=== PATIENT | female | born 1945 | race Caucasian/White ===

== ENCOUNTER 2017-01-11 05:43 | Day surgery (SDC) | payer OTHER ==
[2017-01-11] MEDS ORDERED: LIDOCAINE 1% 5 ML SDV ID PRN (06:35)
[2017-01-11] MEDS ORDERED: ONDANSETRON 4 MG/2 ML VIAL ONE (06:53)
[2017-01-11] MEDS ORDERED: fentaNYL 100 MCG/2 ML INJ ONE (06:53)
[2017-01-11] MEDS ORDERED: LIDOCAINE 2% 100 MG/5 ML SYR ONE (06:53)
[2017-01-11] MEDS ORDERED: ROCURONIUM 100 MG/10 ML VIAL ONE (06:53)
[2017-01-11] MEDS ORDERED: DEXAMETHASONE 4 MG/ML VIAL ONE (06:53)
[2017-01-11] MEDS ORDERED: ROPIVACAINE HCL 150 MG/30 ML INJ ONE (06:53)
[2017-01-11] MEDS ORDERED: PROPOFOL 200 MG/20 ML VIAL ONE (06:53)
[2017-01-11] MEDS ORDERED: EPINEPHrine 30 MG/30 ML MDV ONE (06:58)
[2017-01-11] MEDS ORDERED: SKIN ADHESIVE (DERMABOND) 1 EACH TP ONE (06:58)
[2017-01-11] MEDS ORDERED: LIDO/BUPIVA/morphINE 15ML SYR IU ONE (07:00)
[2017-01-11] MEDS ORDERED: LIDO/BUPIVA 10ML SYR IU ONE (07:00)
[2017-01-11] MEDS ORDERED: ceFAZolin 2 GM/DEXTROSE 100 ML IV ONE (07:00)
[2017-01-11] MEDS ORDERED: MIDAZOLAM 2 MG/2 ML VIAL ONE (07:05)
[2017-01-11] MEDS ORDERED: LIDOCAINE/BUPIVICAINE 10 ML SYR ONE (07:24)
[2017-01-11] MEDS ORDERED: LIDOCAINE/BUP/DURAMORPH 15 ML SYR IF ONE (07:24)
[2017-01-11] MEDS ORDERED: PHENYLEPHRINE HCL 100 MCG/ML SYR ONE (09:23)
[2017-01-11] MEDS ORDERED: epHEDrine SULFATE 10 MG/ML SYR ONE (09:23)
--- NOTE | 2017-01-11 10:29 | GOP ---
[f rep st] OPERATIVE REPORT DATE OF OPERATION: 01/11/2017 SURGEON: Kenn Fierro MD HOME CARE PROVIDER: Kezia Rios It should be noted no qualified resident was available. First maris agapitojuany was necessary to assist with the repair of the rotator cuff. ANESTHESIA: General with an interscalene block. PREOPERATIVE DIAGNOSIS: 1. Right shoulder rotator cuff tear. 2. Biceps tendinitis. 3. Subacromial impingement. POSTOPERATIVE DIAGNOSIS: 1. Right shoulder large rotator cuff tear. 2. Previously torn biceps tendon with a biceps stump in the joint. 3. Subacromial impingement. PROCEDURE PERFORMED: 1. Arthroscopic repair of the large rotator cuff tear. CPT code 54436. 2. Arthroscopic subacromial decompression. CPT code 44177. 3. Arthroscopic debridement of glenohumeral joint, debridement of the biceps stump. CPT code 68567 . FINDINGS: 1. Intact articular cartilage of humeral head and glenoid. 2. Absent biceps tendon with a stump of the biceps tendon and frayed superior labrum. 3. Intact anterior, inferior, posterior labrum. 4. Intact articular cartilage, humeral head and glenoid. 5. Large tear of the rotator cuff retracted to mid humeral head. 6. Mild subacromial bursitis. 1. Large downsloping of anterior acromion. INDICATIONS: Patient is a 71-year-old with persistent right shoulder pain. This has not improved d espite nonoperative management. Patient had options discussed, desired to go ahead with arthroscopy , arthroscopic repair of the rotator cuff, likely biceps tenodesis, and subacromial decompression. Patient understood the potential risks and benefits, including, but not limited to, bleeding, infect ion, persistent pain, stiffness, anesthetic risks. DESCRIPTION OF PROCEDURE: The patient was taken to the operating room. After undergoing successful general anesthesia, the patient was placed in the beach chair position. Right upper extremity was prepped and draped in usual sterile manner. Anatomic landmarks were identified. The anterior, post erior portal sites were injected with 0.25% Marcaine and 1% lidocaine. The subacromial space was in jected with the same. Posterior portal was made. The arthroscope was placed in the joint with the arthroscope in the joint, and the anterior portal was made as well. The findings are described abov e. The biceps was absent, indicating a rupture of this. The stump of the biceps was then subsequen tly debrided. The labrum was debrided. Next, after the debridement of the glenohumeral joint, the lateral portal was made and the greater t uberosity was decorticated. Next, with the arthroscope placed in the subacromial space, bursectomy was performed and any small b leeders were coagulated using electrocautery. The subacromial decompression was done beginning ante rolateral, and extended from anterolateral to anteromedial with the acromionizer bur. The acromion was made flat. Next, the anchors were placed. The portals were placed. It should be noted that some small amount of coplaning was done on the distal clavicle as well. The resection was not done. Next, anchors were placed into the bone after small holes were made to help facilitate healing. Thr ee of the 2.9 mm juggernaut suture anchors were placed. These had two #2 MaxBraid sutures. These w ere placed into the bone. The sutures from this were then brought through the tissue. There were t wo #2 MaxBraids in each of the 3 anchors. These were brought through the tissue utilizing either [employer] suture passing device or the bird beak. These were passed through. The rotator cuff was then tied down using arthroscopic knot tying technique. Following this, the repair of the rotator cuff was completed. The area was irrigated. There was fair to good tissue with good repair. Radha l sites were closed using 3-0 nylon suture. The subacromial space was injected with 0.25% Marcaine, 1% lidocaine and 5 mg of Duramorph. The patient had a sterile dressing. Patient was awakened, frankie en to recovery room in stable condition. Sponge, instrument, and needle counts were correct. PATIENT POSITION: Beach chair. PLAN: For the patient to undergo physical therapy with emphasis on passive range of motion only for the next 7 weeks. Will be passive motion in sling for 7 weeks. Claudia Bustos rotator cuff mervat fischer /[id number]/MODL
[2017-01-11] MEDS ORDERED: D5W 1/2 NS 1,000 ML IV SCH (11:00)
[2017-01-11] MEDS ORDERED: ONDANSETRON 4 MG/2 ML VIAL IVP PRN (11:00)
[2017-01-11] MEDS ORDERED: HYDROCODONE/APAP 5/325 TAB PO PRN (11:00)
[2017-01-11] MEDS ORDERED: OXYCODONE/APAP 5/325 TAB PO PRN (11:00)
== END 2017-01-11 11:20 | disposition home or self-care (01) ==
LOC: FSGY 05:43
PROVIDERS: ATTEND Orthopaedic Surgery Sports Medicine
PROC: 0PQ Upper Bones, Repair (ICD-10-PCS; principal; 2017-01-11 07:21)
PROC: 0MB14ZZ Excision of Right Shoulder Bursa and Ligament, Percutaneous Endoscopic Approach (ICD-10-PCS; principal; 2017-01-11 07:21)
PROC: 0LQ14ZZ Repair Right Shoulder Tendon, Percutaneous Endoscopic Approach (ICD-10-PCS; principal; 2017-01-11 07:21)
PROC: 0PQ Upper Bones, Repair (ICD-10-PCS; principal; 2017-01-11 07:21)
DX: M75.111 Incomplete rotator cuff tear or rupture of right shoulder, not specified as traumatic (principal); M75.21 Bicipital tendinitis, right shoulder; M75.41 Impingement syndrome of right shoulder; I10 Essential (primary) hypertension; E03.9 Hypothyroidism, unspecified
CPT/HCPCS: C1713; J0690; J1100; J2001; J2250; J2274; J2370; J2405; J2704; J2795; J3010